=== PATIENT | male | born 1975 | race Caucasian/White ===

== ENCOUNTER 2018-01-29 03:32 | Emergency (ER) | payer BC, OTHER ==
[2018-01-29] MEDS ORDERED: Morphine 10 MG/ML VIAL ONE (04:03)
[2018-01-29] MEDS ORDERED: Amoxicillin/Potassium Clav 875 MG TAB ONE (04:04)
[2018-01-29] MEDS ORDERED: Ondansetron ODT 4 MG TAB ONE (04:04)
== END 2018-01-29 04:18 | disposition home or self-care (01) ==
LOC: MADERS 03:32
DX: H66.92 Otitis media, unspecified, left ear (principal); H60.8X1 Other otitis externa, right ear
CPT/HCPCS: 96372; J2270; Q0162

== ENCOUNTER 2018-05-24 20:23 | Emergency (ER) | payer BC ==
[2018-05-24] MEDS ORDERED: Adacel (T-DAP) 0.5 ML VIAL ONE (20:40)
== END 2018-05-24 21:05 | disposition home or self-care (01) ==
LOC: MADERS 20:23
DX: S61.213A Laceration without foreign body of left middle finger without damage to nail, initial encounter (principal); J45.909 Unspecified asthma, uncomplicated; W26.0XXA Contact with knife, initial encounter
CPT/HCPCS: 12001; 90471; 90715; J2001